=== PATIENT | male | born 1985 | race Caucasian/White ===

== ENCOUNTER 2023-04-04 09:21 | Emergency (ER) | payer MEDICAID, SELFPAY ==
[2023-04-04 09:31] VITALS: BP 165/125; PULSE 75; RESP 18; TEMP 36.8; O2SAT 99
--- NOTE | 2023-04-04 09:32 | ED_ITS ---
HPI - Back Pain/Injury 2 General: Chief Complaint: Back Pain/Injury Stated Complaint: Lower back pain Time Seen by Provider: 04/04/23 09:30 Source: patient Mode of arrival: ambulatory Limitations: no limitations History of Present Illness: Patient is a 37-year-old male presents to ED today with complaint of left-sided back pain over the past 3 days or so. Patient states at work another individual handed him an 80 pound bag of concrete abruptly and he feels like he possibly injured his back by lifting this as he began experiencing discomfort shortly after. He states pain is worse with certain movements and positions. He states rarely he will have bilateral lower extremity numbness affecting the entire surface of both legs. Patient is able to ambulate here without difficulty. He has no saddle anesthesia or bowel/bladder dysfunction. MD elicited complaint: back pain Onset (ago): day(s) Timing: constant Severity: moderate Similar Symptoms Previously: No Location: lumbar spine, thoracic spine and left lower back Radiation: none Exacerbating factors: movement Relieving factors: immobilization Context: while lifting Associated symptoms: Reports no associated symptoms; Deny abdominal pain, difficulty walking, dysuria, fever(s) or hematuria Treatments prior to arrival: cold therapy Work related injury: Yes Review of Systems 2 Const: Denies: fever(s) Card: Denies: chest pain Resp: Denies: dyspnea GI: Denies: abdominal pain : Denies: flank pain, dysuria or hematuria Musc: Reports: back pain; Denies: neck pain, extremity pain, extremity swelling, joint pain or joint swelling Skin/Breast: Denies: rash Neuro: Reports: numbness in extremities (intermittent bilateral LEs); Denies: headache(s), weakness in extremities or difficulty walking Physical Exam 2 Const: COMMON NORMALS: no acute distress, patient oriented x3, no limitations, alert and well nourished GENERAL APPEARANCE: cooperative GI: COMMON NORMALS: Normal to inspection, nondistended, normoactive bowel sounds present, Soft to palpation and non-tender PALPATION: Yes Soft to palpation : COMMON NORMALS: Yes no CVA tenderness BLADDER/KIDNEY EXAM: Yes no CVA tenderness Back/Pelvis: COMMON NORMALS: no CVA tenderness THORACIC SPINE/UPPER BACK: Y es thoracic ROM normal, No thoracic spinal tenderness and Yes paraspinal muscle tenderness LUMBAR SPINE/LOWER BACK: Yes lumbar ROM normal, No lumbar spinal tenderness, Yes paraspinal muscle tenderness, Yes paraspinal muscle spasm and Yes straight leg raise negative bilaterally PELVIS: Yes buttocks normal and No sciatic notch tenderness SACROILIAC JOINTS: Yes SI joints normal S ACRUM: no tenderness COCCYX: no tenderness BACK IMAGE (MALE): 1. TTP Extremity: COMMON NORMALS: normal to inspection, full ROM, capillary refill normal, no joint enlargement, no clubbing, cyanosis or edema, no calf tenderness and no pedal edema NARRATIVE EXTREMITY EXAM: bilateral DP/PT pulses easily palpable GENERAL: Yes normal exam except as noted Neuro: COMMON NORMALS: patient oriented x3, moves all extremities, no focal motor deficits, no sensory deficits noted and gait normal S ENSORIUM/ORIENTATION: Yes alert GAIT: Yes Normal gait present MOTOR EXAM: 5/5 motor strength present throughout DEEP TENDON REFLEXES: Right patellar reflex intensity grade: 2+ and Left patellar reflex intensity grade: 2+ Skin: COMMON NORMALS: no rashes or lesions noted GENERAL SKIN EXAM: no rashes or lesions noted Course 2 Vital Signs: Vital signs: Vital Signs Temperature 98.2 F 04/04/23 09:31 Pulse Rate 75 04/04/23 09:31 Respiratory Rate 18 04/04/23 09:31 Blood Pressure 165/125 04/04/23 09:31 Pulse Oximetry 99 04/04/23 09:31 Oxygen Delivery Me thod Room Air 04/04/23 09:31 MDM - Back Pain/Injury Medical Decision Making Patient will be treated for a musculoskeletal back strain. He has been taking ibuprofen?he can continue this. Will add steroids and muscle relaxers. He does have an upcoming PCP appointment to discuss his chronic hypertension and getting back on blood pressure medications. He can follow-up with him in regards to his back if it is not improving. He has no neurologic deficits on exam today. Differential Diagnosis Likely lumbar radiculopathy, strain of lumbar region and thoracic back pain No radiology studies performed this visit Discharge Plan Discharge Patient Disposition: Home Clinical Impression: Back strain Qualifiers: Encounter type: initial encounter Qualified Code(s): S39.012A - Strain of muscle, fascia and tendon of lower back, initial encounter Condition: Stable Prescriptions: New methocarbamol 500 mg tablet 1,000 mg PO Q8H Qty: 30 0RF prednisone 10 mg tablet 60 mg PO DAILY 5 Days Qty: 30 0RF Continued ibuprofen 200 mg Tablet 800 mg PO Q6H PRN (Reason: Pain) No Action Aspir-81 81 mg Tablet,Delayed Release (Dr/Ec) 162 mg PO DAILY Discharge Orders: Discharge ED (Routine); Ordered 04/04/23 Ordered By: Bernadette Ca Patient Instructions: Low Back Strain (ED), Thoracic Back Strain (ED) Coding Level of Care Code ED Hand Sample Maker for Adia Lechuga
--- NOTE | 2023-04-04 09:39 | PC.PHAR ---
pt states he takes care of his own medications-pt states he uses to take bp meds states he moved here and hasnt had a pcp to get a refill-pt states he was taking lisinopril 20mg daily pt states not had in 8 months pt states he has an appt with a pcp soon-
[2023-04-04] MEDS: ketorolac 60 mg/2 mL INJ IM (09:53)
[2023-04-04] MEDS: orphenadrine 30 mg/mL Inj 2 mL 60 MG IM (09:55)
== END 2023-04-04 10:16 | disposition home or self-care (01) ==
PROVIDERS: Emergency Provider Physician Assistant
DX: S39.012A Strain of muscle, fascia and tendon of lower back, initial encounter (principal); Z79.82 Long term (current) use of aspirin; X50.0XXA Overexertion from strenuous movement or load, initial encounter
CPT/HCPCS: 96372; 99284; J1885; J2360

== ENCOUNTER 2024-12-12 03:09 | Observation (INO) | payer MEDICAID, SELFPAY ==
[2024-12-12] VITALS (14 sets, daily range): BP systolic 130–193; BP diastolic 90–125; PULSE 53–81; RESP 12–24; TEMP 36.1–37.1; O2SAT 91–97; BMI 31.2
--- OUTSIDE RECORDS SUMMARY | 2024-12-12 03:14 | XMS_ITS | Clinical Summary ---
Author Organization [facility] Address [address] [place] [address] Phone Care Team Providers Care Awning Installer Name Role Phone Unavailable Primary Care Provider Unavailabl e Social History Tobacco Use Types Packs/Day Years Used Date Smoking Tobacco: Never Assessed Sex and Gender Information Value Date Recorded Sex Assigned at Not on file Legal Sex Male 4:25 PM CDT Gender Identity Not on file Sexual Orientation Not on file Plan of Treatment Health Maintenance Due Date Last Done Comments DTAP/TDAP/TD VACCINES (1 - Tdap) 2006 HEPATITIS B VACCINES (1 of 3 - 19+ 3-dose series) 03/14 HPV VACCINES (1 - 3-dose SCDM series) 2014 INFLUENZA VACCINE (#1) 2024
--- NOTE | 2024-12-12 03:49 | XRR_ITS ---
PROCEDURE INFORMATION: Exam: XR Chest Exam date and time: 12/12/2024 4:06 AM Age: 39 years old Clinical indication: Other: Epigastric pain/diaphoresis/hypertension; Hypertension with diaphoresis. C/O epigastric pain with n/v. Questionable widened mediastinum vs magnification on cxr. TECHNIQUE: Imaging protocol: Radiologic exam of the chest. Views: Portable supine AP chest x-ray, 1 view. COMPARISON: No relevant prior studies available. FINDINGS: Tubes, catheters and devices: Monitor leads project over the chest. Lungs: Low lung volume inspiration. No consolidation. Pleural spaces: No significant costophrenic angle blunting. No pneumothorax. Heart/Mediastinum: Heart size within normal limits given the portable supine AP technique. Bones/joints: No acute osseous abnormality. XR/XR chest 1V portable 10330 IMPRESSION: No acute abnormality demonstrated.
[2024-12-12] MEDS: HYDROmorphone 0.5 MG/0.5 ML INJ 1 MG IVP (03:54)
[2024-12-12] MEDS: ondansetron 2 mg/ML SDV 2 mL 4 MG IVP ×2 (03:58→17:05)
[2024-12-12 04:00] LABS: Hematocrit 45.0 % (37-53); Hemoglobin 14.90 g/dL (11.27-16.99); Mean Corpuscular HGB Conc 33.1 g/dL (30-55); Mean Corpuscular Hemoglobin 29.1 pg (27-33); Mean Corpuscular Volume 87.9 fl (82-101); Nucleated Red Blood Cells % 0 %; Platelet Count 281 10^3/cmm (157-399); Red Blood Count 5.12 10^6/uL (3.85-5.65); White Blood Count 11.64 10^3/uL (3.29-11.43)
--- NOTE | 2024-12-12 04:04 | ED_ITS ---
HPI - Abdominal Pain 2 General: Chief Complaint: Abdominal Pain Stated Complaint: Severe abd pain Time Seen by Provider: 12/12/24 03:41 History of Present Illness: 39-year-old male patient with a history of epigastric pain for the last few hours. He vomited 3 times at home. He is diaphoretic. He is nauseated. He says that he has had problems with stomach pain on and off, but never this bad. He has been diagnosed with alpha gal deficiency syndrome by his PCP. He has a history of appendectomy. He denies fever. No diarrhea. No other belly surgeries. Related Data Home Medications ?Medication ?Instructions ?Recorded ?Confirmed aspirin 81 mg tablet,delayed 81 mg PO DAILY PRN Pain 0 04/04/23 12/12/24 release lisinopril 30 mg tablet 30 mg PO DAILY 12/12/2404/06 Previous Rx's ?Medication ?Instructions ?Recorded amoxicillin 875 mg-potassium 1 tab PO BID 7 days #14 t abs 12/12/24 clavulanate 125 mg tablet meloxicam 7.5 mg tablet 7.5 mg PO DAILY #7 tabs 04/06 oxycodone 5 mg tablet 5 mg PO Q8H PRN pain 5 days #14 12/12/24 tabs Allergies Allergy/AdvReac Type Severity Reaction Status Date / Time Alpha-Gal Allergy Unknown Verified 12/12/24 07:59 (Xnthulzkm-Fdyhc-0,3-Gala shellfish derived Allergy ALGY-Difficulty Verified 12/12/24 03:28 Breathing Physical Exam 2 Const: COMMON NORMALS: no acute distress GENERAL APPEARANCE: cooperative and ill appearing HENMT: COMMON NORMALS: normocephalic, atraumatic and Normal external nose present HEAD & SCALP: normocephalic and atraumatic FACE & SINUS: normal facial exam and face symmetric NOSE: Normal external nose present Eye: COMMON NORMALS: Equal, round and reactive pupils present and EOMs intact bilaterally PUPIL: Yes Equal, round and reactive pupils present Neck/C-Spine: GENERAL: Yes trachea midline Chest: CHEST: Yes Symmetrical chest wall rise Resp: COMMON NORMALS: normal respiratory effort, No retractions, No use of accessory muscles and clear to auscultation bilaterally AUSCULTATION: clear to auscultation bilaterally Cardio: COMMON NORMALS: regular rhythm RATE: bradycardic RHYTHM: regular rhythm GI: COMMON NORMALS: Normal to inspection, nondistended, normoactive bowel sounds present PALPATION: Yes Tenderness to palpation present (GI) (Epigastric right upper quadrant) Extremity: COMMON NORMALS: no pedal edema Neuro: [place] COMA SCALE: document GCS findings [place] coma scale eye opening: Spontaneous [place] coma scale verbal response: Orientated [place] coma scale motor response: Obey commands [place] coma scale total score: 15 S ENSORY EXAM: Yes extremities (intact) Psych: COMMON NORMALS: speech normal SPEECH: Yes normal speech Skin: COMMON NORMALS: no rashes or lesions noted GENERAL SKIN EXAM: no rashes or lesions noted Course 2 Vital Signs: Vital signs: Vital Signs Temperature 97.0 F L 12/12/24 16:30 Pulse Rate 78 12/12/24 17:05 Respiratory Rate 22 H 12/12/24 17:05 Blood Pressure 171/92 12/12/24 17:05 Pulse Oximetry 92 12/12/24 17:05 Oxygen Delivery Me thod Room Air 12/12/24 17:05 MDM - Abdominal Pain Medical Decision Making Patient is bradycardic. He appears diaphoretic and nauseated. White blood cell count is 11.6. Otherwise CBC BMP are normal. Liver enzymes are normal. His troponin is nondetectable. CRP is 3. Lipase is 33. EKG shows sinus bradycardia with a heart rate of 50. Intervals are normal. [place] is normal. No ST wave changes. EKG timed 0405, read at 0408. Chest x-ray shows some widening of the mediastinum. Is free of infiltrate. CTA of the chest with follow-through CT of the belly is pending. Ultrasound of the gallbladder is also pending. Spoke with surgery. Patient has wall thickening, [place] cholecystic fluid, and stones on CT. Ultrasound is confirming. The surgeon wishes to see the patient following ultrasound and review ultrasound images. He is given Zosyn as well as a liter bolus. Lab Data 12/12/24 03:45 12/12/24 03:45 Labs/Radiology: Radiology Impressions Chest X-Ray 12/12/24 03:49 IMPRESSION: No acute abnormality demonstrated. Chest/Abdomen/Pelvis CT 12/12/24 04:15 IMPRESSION: 1. No evidence of pulmonary embolism or aortic dissection. 2. Minimal to mild lingular and bibasilar atelectasis. IMPRESSION: Cholelithiasis and acute cholecystitis. Gallbladder Ultrasound 12/12/24 04:32 IMPRESSION: Cholelithiasis and acute cholecystitis. Laboratory Results WBC 11.64 10^3/uL (3.29-11.43) H 12/12/24 03:45 RBC 5.12 10^6/uL (3.85-5.65) 12/12/24 03:45 Hgb 14.90 g/dL (11.27-16.99) 12/12/24 03:45 Hct 45.0 % (37-53) 12/12/24 03:45 MCV 87.9 fl (82-101) 12/12/24 03:45 MCH 29.1 pg (27-33) 12/12/24 03:45 MCHC 33.1 g/dL (30-55) 12/12/24 03:45 RDW 12.3 % (12.1-15.1) 12/12/24 03:45 Plt Count 281 10^3/cmm (157-399) 12/12/24 03:45 MPV 10.1 fL (7.4-10.4) 12/12/24 03:45 Neut % (Auto) 80.2 % 12/12/24 03:45 Lymph % (Auto) 13.1 % 12/12/24 03:45 [place] % (Auto) 4.4 % 12/12/24 03:45 Eos % (Auto) 1.6 % 12/12/24 03:45 Baso % (Auto) 0.4 % 12/12/24 03:45 Neut # (Auto) 9.33 10^3/uL (1.8-7.7) H 12/12/24 03:45 Lymph # (Auto) 1.5 10^3/uL (0.8-4.8) 12/12/24 03:45 [place] # (Auto) 0.5 10^3/uL (0.2-0.9) 12/12/24 03:45 Eos # (Auto) 0.2 10^3/uL (0.0-0.8) 12/12/24 03:45 Baso # (Auto) 0.1 10^3/uL (0.0-0.1) 12/12/24 03:45 Nucleated RBC % (auto) 0 % 12/12/24 03:45 Nucleated RBCs # 0.0 /100WBC 12/12/24 03:45 Sodium 136 mmol/L (136-145) 12/12/24 03:45 Potassium 4.7 mmol/L (3.5-5.1) 12/12/24 03:45 Chloride 100 mmol/L (98-107) 12/12/24 03:45 Carbon Dioxide 25 mmol/L (22-29) 12/12/24 03:45 Anion Gap 15.7 (5-19) 12/12/24 03:45 BUN 14 mg/dL (6-20) 12/12/24 03:45 Creatinine 0.8 mg/dL (0.7-1.2) 12/12/24 03:45 GFR Calculation 108.8 mL/min (90-130) 12/12/24 03:45 Glucose 108 mg/dL (65-115) 12/12/24 03:45 Calculated Osmolality 283 mOsm/kg (285-295) L 12/12/24 03:45 Calcium 11.0 mg/dL (8.5-10.5) H 12/12/24 03:45 Total Bilirubin 0.6 mg/dL (0.15-1.2) 12/12/24 03:45 AST 24 U/L (0-40) 12/12/24 03:45 ALT 28 U/L (0-41) 12/12/24 03:45 Alkaline Phosphatase 129 U/L (40-130) 12/12/24 03:45 Troponin T Baseline < 6 ng/L (0-15) 12/12/24 03:45 Troponin T 120 Minute < 6.0 ng/L (0-15) 12/12/24 05:50 Delta Troponin T 0 ABS# (0-10) 12/12/24 05:50 C-Reactive Protein 3.0 mg/L (0.0-4.9) 12/12/24 03:45 Total Protein 7.9 g/dL (6.6-8.7) 12/12/24 03:45 Albumin 5.1 g/dL (3.5-5.2) 12/12/24 03:45 Globulin 2.8 g/dL (1.3-4.6) 12/12/24 03:45 Lipase 33 U/L (13-60) 12/12/24 03:45 Urine Color Yellow (Yellow) 12/12/24 05:30 Urine Appearance Clear (CLEAR) 12/12/24 05:30 Urine pH 8.0 (5-7) A 12/12/24 05:30 Ur Specific [place] 1.039 (1.005-1.030) H 12/12/24 05:30 Urine Protein Negative (Negative) 12/12/24 05:30 Urine Glucose (UA) Negative (Normal) 12/12/24 05:30 Urine Ketones Negative (Negative) 12/12/24 05:30 Urine Blood Negative (Negative) 12/12/24 05:30 Urine Nitrate Negative (Negative) 12/12/24 05:30 Urine Bilirubin Negative (Negative) 12/12/24 05:30 Urine Urobilinogen 0.2 mg/dL (Negative) 12/12/24 05:30 Ur Leukocyte Esterase Negative (Negative) 12/12/24 05:30 Urine RBC 0-2 /hpf (0-2) 12/12/24 05:30 Urine WBC 0-5 /hpf (0-5) 12/12/24 05:30 Ur Squamous Epith Cells 0-5 /hpf (0-5) 12/12/24 05:30 Amorphous Sediment Not Reportable 12/12/24 05:30 Urine Bacteria None seen /hpf (NONE) 12/12/24 05:30 Hyaline Casts 0.40 /lpf 12/12/24 05:30 All radiology interpretation(s) finalized by discharge Discharge Plan Discharge Patient Disposition: Admitted As Inpatient Admit Provider: Adam Day Clinical Impression: Acute cholecystitis Condition: Stable Discharge Diet: Advance as tolerated Discharge Activity: Limit activity as instructed Coding Level of Care Code ED Senior Controls Engineer for Ivanag Ankush
--- NOTE | 2024-12-12 04:05 | ECG_ITS ---
[facility] Test Date: 2024-12-12 Pat Name: Shaun Schulte Department: Room: Gender: Male Senior Marketing Coordinator: : 1985 Requested By: Deuce Martines Order Number: [id number] Stevenson MD: René Cooper M.D. Measurements Intervals [place] Rate: 48 P: -37 RI: 161 QRS: -23 QRSD: 93 T: 10 QT: 398 QTc: 356 Interpretive Statements SINUS BRADYCARDIA WITH OCCASIONAL SUPRAVENTRICULAR PREMATURE COMPLEXES LOW QRS VOLTAGE IN PRECORDIAL LEADS [QRS DEFLECTION < 1.0 mV IN CHEST LEADS] POSSIBLE RIGHT VENTRICULAR CONDUCTION DELAY [RSR (QR) IN V1/V2] SEPTAL MYOCARDIAL INFARCTION , OF INDETERMINATE AGE [40+ ms Q WAVE IN V1/V2] No previous ECG available for comparison Electronically Signed On 12-12-2024 14:11:19 BOWLING BALL MOLD ASSEMBLER by René Cooper M.D. [email or web address]
--- NOTE | 2024-12-12 04:15 | CTR_ITS ---
PROCEDURE INFORMATION: Exam: CTA Chest Without And With Contrast Exam date and time: 12/12/2024 5:19 AM Age: 39 years old Clinical indication: Nausea and vomiting; Abdominal pain; Other: Hypertension/diaphoresis; Other: N/a; Prior surgery; Surgery date: 6+ months; Surgery type: Appy; Hypertension with diaphoresis. C/O epigastric pain with n/v. Questionaable widened mediastinum vs magnification on cxr. ; Additional info: Epigastric pain, widened mediastinum TECHNIQUE: Imaging protocol: Computed tomographic angiography of the chest without and with contrast. Exam focused on the arteries. 3D rendering (Not supervised by radiologist): MIP and/or 3D reconstructed images were created by the technologist. Radiation optimization: All CT scans at this facility use at least one of these dose optimization techniques: automated exposure control; mA and/or kV adjustment per patient size (includes targeted exams where dose is matched to clinical indication); or iterative reconstruction. Contrast material: OMNI 350; Contrast volume: 100 ml; Contrast route: INTRAVENOUS (IV); COMPARISON: CR (CHEST, ) 12/12/2024 4:06 AM RADIATION DOSE METRICS: Total DLP (mGy-cm): 2170.06 FINDINGS: Pulmonary arteries: No vascular intraluminal filling defects to suggest pulmonary embolism. Aorta: No acute abnormality. No aortic aneurysm or dissection. Lungs: Minimal to mild lingular and bibasilar atelectasis. No consolidation. Pleural spaces: No pleural effusion. No pneumothorax. Heart: Heart size is normal. Coronary arteries: No coronary artery calcifications demonstrated. Lymph nodes: No enlarged lymph nodes. Bones/joints: No acute osseous abnormality. No acute fracture. Soft tissues: No significant soft tissue abnormalities. PROCEDURE INFORMATION: Exam: CT Abdomen And Pelvis With Contrast Exam date and time: 12/12/2024 5:19 AM Age: 39 years old Clinical indication: Nausea and vomiting; Abdominal pain; Other: Hypertension/diaphoresis; Other: N/a; Prior surgery; Surgery date: 6+ months; Surgery type: Appy; Hypertension with diaphoresis. C/O epigastric pain with n/v. Questionaable widened mediastinum vs magnification on cxr. ; Additional info: Epigastric pain, widened mediastinum TECHNIQUE: Imaging protocol: Computed tomography of the abdomen and pelvis with contrast. Radiation optimization: All CT scans at this facility use at least one of these dose optimization techniques: automated exposure control; mA and/or kV adjustment per patient size (includes targeted exams where dose is matched to clinical indication); or iterative reconstruction. Contrast material: OMNI 350; Contrast volume: 100 ml; Contrast route: INTRAVENOUS (IV); COMPARISON: CR (CHEST, ) 12/12/2024 4:06 AM RADIATION DOSE METRICS: Total DLP (mGy-cm): 2170.06 FINDINGS: Liver: No acute abnormality. No mass. Gallbladder and biliary ducts: Faint gallstone or stones within the posterior gallbladder fundus and neck with gallbladder wall thickening, enhancement, pericholecystic fluid and fat stranding. No significant biliary ductal dilatation. Pancreas: No acute abnormality. No ductal dilation. Spleen: No acute abnormality. Adrenal glands: No significant or acute abnormality. Kidneys and ureters: No acute abnormality. No hydronephrosis. Stomach and bowel: Fluid and ingested contents within the stomach. No significant or disproportionate large or small bowel distention. No evidence of diverticulitis. Appendix: Appendix is absent with tiny pericecal metallic clips. Intraperitoneal space: No significant fluid collection. No free air. Vasculature: No acute abnormality. No aortic aneurysm or dissection. Lymph nodes: No enlarged lymph nodes. Urinary bladder: Unremarkable as visualized. Reproductive: Unremarkable as visualized. Bones/joints: No acute osseous abnormality. No dislocation. Soft tissues: No significant soft tissue abnormalities. CT/CT angio chest w abd pel w con IMPRESSION: 1. No evidence of pulmonary embolism or aortic dissection. 2. Minimal to mild lingular and bibasilar atelectasis. IMPRESSION: Cholelithiasis and acute cholecystitis.
[2024-12-12 04:26] LABS: Troponin(5th) Baseline < 6 ng/L (0-15)
[2024-12-12 04:29] LABS: Alanine Aminotransferase 28 U/L (0-41); Albumin Level 5.1 g/dL (3.5-5.2); Alkaline Phosphatase 129 U/L (40-130); Blood Urea Nitrogen 14 mg/dL (6-20); Calcium 11.0 mg/dL (8.5-10.5); Carbon Dioxide 25 mmol/L (22-29); Chloride 100 mmol/L (98-107); Creatinine Clr Calc Pharmacy 153.4664; Globulin 2.8 g/dL (1.3-4.6); Glucose 108 mg/dL (65-115); Lipase 33 U/L (13-60); Osmolality Calculated 283 mOsm/kg (285-295); Sodium 136 mmol/L (136-145); Total Protein 7.9 g/dL (6.6-8.7)
--- NOTE | 2024-12-12 04:32 | USR_ITS ---
PROCEDURE INFORMATION: Exam: US Abdomen, Limited; Right Upper Quadrant Exam date and time: 12/12/2024 5:57 AM Age: 39 years old Clinical indication: Abdominal pain; Epigastric; HX of appendectomy; Additional info: Ruq and epigastric pain TECHNIQUE: Imaging protocol: Real time ultrasound of the abdomen with image documentation. Limited exam focused on the right upper quadrant. COMPARISON: CT angio chest w abd pel w con 12/12/2024 5:19 AM FINDINGS: Liver: No acute abnormality. No intrahepatic ductal dilatation. No masses. Gallbladder: Shadowing gallstone or stones within the gallbladder neck with moderate gallbladder distension. Gallbladder wall thickening measuring approximately 8 mm in thickness anteriorly. Mild pericholecystic fluid. Biliary ducts: No significant biliary ductal dilatation. Common bile duct measures 3 mm in diameter. Pancreas: Pancreas not well visualized. Right kidney: No acute abnormality. No mass. No hydronephrosis. Intraperitoneal space: Minimal subhepatic fluid. US/US gall bladder [id number] IMPRESSION: Cholelithiasis and acute cholecystitis.
[2024-12-12 04:35] LABS: Anion Gap 15.7 (5-19); Aspartate Amino Transferase 24 U/L (0-40); Potassium 4.7 mmol/L (3.5-5.1)
[2024-12-12] MEDS: iohexol 350 mg/mL 500 mL Btl (per mL) IV (04:35)
[2024-12-12 05:47] LABS: Glucose Urine UA Negative (Normal); Nitrate Urine Negative (Negative)
[2024-12-12 05:51] LABS: Add Urine Microscopic? YES; Specific Gravity, Urine 1.039 (1.005-1.030)
[2024-12-12 06:15] LABS: Troponin 5 2HR < 6.0 ng/L (0-15); Troponin 5 2HR Delta 0 ABS# (0-10)
--- NOTE | 2024-12-12 06:22 | ECG_ITS ---
[facility] Date: 2024-12[facility]12 Pat Name: Shaun Schutle Department: Room: Gender: Male Vocational Training Director: : 1985 Requested By: Deuce Martines Order Number: [id number] Graham MD: René Cooper M.D. Measurements Intervals [place] Rate: 58 P: -16 AL: 151 QRS: 2 QRSD: 97 T: 0 QT: 410 QTc: 405 Interpretive Statements SINUS BRADYCARDIA SEPTAL INFARCT, AGE UNDETERMINED Compared to ECG 12/12/2024 04:05:12 Septal myocardial infarct finding still present Electronically Signed On 12-12-2024 14:16:50 ADULT MINISTRIES DIRECTOR by René Cooper M.D. [email or web address]
[2024-12-12] MEDS: piperacillin-tazobactam 3.375 GM in sodium chloride 0.9% (plus) 50 ML IV ×2 (06:28→13:44)
[2024-12-12] MEDS: metoclopramide 5 mg/mL SDV 2 mL 10 MG IVP (06:28)
--- NOTE | 2024-12-12 07:54 | PM.HP ---
Providers/Chief Complaint Chief Complaint: Severe abd pain History of Present Illness Shaun Schulte is a 39 year old male Who presents to the hospital with severe epigastric abdominal pain and periumbilical abdominal pain. According to the patient the pain woke him up from his sleep around 1 AM. He also had several episodes of nausea and vomiting. Denies diarrhea. No fever or chills. In the ER white count was 11 laboratory markers otherwise was unremarkable, he had a CT scan and ultrasound of the abdomen that showed evidence of acute cholecystitis. Review of Systems General: Reports: 10 or more systems reviewed and unremarkable except in HPI and below Medications/Allergies Home Medications ?Medication ?Instructions ?Recorded ?Confirmed ?Last Taken ?Type aspirin 81 mg tablet,delayed 162 mg PO DAILY 04/04/23 04/04/23 04/03/23 History release ibuprofen 200 mg tablet 800 mg PO Q6H PRN Pain 04/04/23 04/04/23 Unknown History methocarbamol 500 mg tablet 1,000 mg (2 x 500 mg) PO Q8H #30 04/04/23 Unknown Rx tabs Allergies Allergy/AdvReac Type Severity Reaction Status Date / Time shellfish derived Allergy ALGY-Difficulty Verified 12/12/24 03:28 Breathing Vitals/I&O/Wt Last Vital Signs Temp 98.7 F 12/12/24 03:26 Pulse 53 L 12/12/24 05:51 Resp 14 12/12/24 03:26 BP 152/99 12/12/24 05:51 Pulse Ox 92 12/12/24 05:51 O2 Del Method Room Air 12/12/24 05:51 12/11/24 12/12/24 12/12/24 22:59 05:59 14:59 Intake Total 0 / 0 Balance 0 / 0 Weight last 48 hrs Weight 224 lb Physical Exam Narrative: Abdominal exam is benign the abdomen is soft there is some tenderness to palpation mainly periumbilical but also on the right upper quadrant, Ta sign is negative. Data 12/12/24 03:45 12/12/24 03:45 A&P Assessment and plan 1. Acute cholecystitis: Plan: After a complete history, physical examination and review of all available clinical data I have offered the patient laparoscopic cholecystectomy for Acute cholecystitis. All the risk and benefits of the procedure were discussed with the patient including the risks of bleeding, infection, damage to surrounding structures including liver, duodenum, colon, risk of injuring bile ducts requiring extensive surgery at higher level of care facility, risk of retained stones, bile leak, bili Priyanka, need for subtotal cholecystectomy, hernia and wound related complications, need to conversion to open procedure. Patient shows understanding and would like to proceed. The goal will be for the patient to be able to transition to the outpatient setting as soon as we finish the operation. But I did explain that in the case of significant findings or intra-abdominal abscess he may require to stay in the hospital for IV antibiotics. PDMP PDMP Reviewed: Not Reviewed Attestations Medical Necessity Statement*: Possible discharge after surgery today Coding Level of Care Code Acute Code for [facility] Diagnoses Acute cholecystitis K81.0
[2024-12-12] MEDS: HYDROmorphone 0.5 MG/0.5 ML INJ IVP (08:06)
[2024-12-12 10:47] LABS: Troponin 5 6HR < 6.0 ng/L (0-15); Troponin 5 6HR Delta 0 ng/L (0-12)
--- NOTE | 2024-12-12 13:00 | ANES.PREANE2 ---
Pre-Anesthetic Assessment Height/Weight: Height 5 ft 11 in Weight 224 lb Temp Pulse Resp BP Pulse Ox O2 Del Method 97.2 F L 63 18 134/90 97 Room Air 12/12/24 09:29 12/12/24 09:29 12/12/24 09:29 12/12/24 09:29 12/12/24 09:29 12/12/24 09:29 Preop Diagnosis: Acute cholecystitis Operation Date: 12/12/24 13:20 Proposed Procedures p Laparoscopic Possible Open Cholecystectomy(Not Applicable) - Adam Day MD Was Beta Brad taken within 24 hours: N/A Was Clonidine taken within 24 hours: N/A Social No alcohol and No tobacco Exam alert, oriented x 3, clear to auscultation bilaterally and regular rate & rhythm Airway Submandibular: within normal limits Cervical ROM: within normal limits Mallampati: Class II Dentition: full Anesthetic Plan ASA status: 3 Anesthesia: General Other: Patient with acute cholecystitis, WBC 11. Currently afebrile and not having any pain No prior issues with anesthesia Patient states that he drank a little water around 1 AM today but otherwise no food or drink since 8 PM last night. Last episode of emesis was late last night History of hypertension on lisinopril Labs reviewed and acceptable for procedure Plan for GETA Medications/Allergies Home Medications ?Medication ?Instructions ?Recorded ?Confirmed ?Last Taken ?Type aspirin 81 mg tablet,delayed 81 mg PO DAILY PRN Pain 04/04/23 12/12/24 04/03/23 History release amoxicillin 875 mg-potassium 1 tab PO BID 7 days #14 tabs 12/12/24 Unknown Rx clavulanate 125 mg tablet lisinopril 30 mg tablet 30 mg PO DAILY 12/12/24 12/12/24 Unknown History meloxicam 7.5 mg tablet 7.5 mg PO DAILY #7 tabs 12/12/24 Unknown Rx oxycodone 5 mg tablet 5 mg PO Q8H PRN pain 5 days #14 12/12/24 Unknown Rx tabs Allergies Allergy/AdvReac Type Severity Reaction Status Date / Time Alpha-Gal Allergy Unknown Verified 12/12/24 07:59 (Artibvayv-Ylizc-1,3-Gala shellfish derived Allergy ALGY-Difficulty Verified 12/12/24 03:28 Breathing Current Medications Generic Name Dose Route Start Last Admin Trade Name Freq PRN Reason Stop Dose Admin Hydromorphone HCl 0.5 mg 12/12/24 07:39 12/12/24 08:06 Hydromorphone 0.5 Mg/0.5 Ml Inj IVP 0.5 mg Q4H PRN Administration PAIN Lactated Ringer's 1,000 mls @ 100 mls/hr 12/12/24 06:45 12/12/24 07:45 Lactated Ringers IV 100 mls/hr .Q10H KADE Administration Data Anesthesia 12/12/24 03:45 12/12/24 03:45 Short CBC 12/12/24 Range/Units 03:45 WBC 11.64 H (3.29-11.43) 10^3/uL Hgb 14.90 (11.27-16.99) g/dL Hct 45.0 (37-53) % MCV 87.9 (82-101) fl Plt Count 281 (157-399) 10^3/cmm Neut % (Auto) 80.2 % Neut # (Auto) 9.33 H (1.8-7.7) 10^3/uL BMP 12/12/24 03:45 Sodium 136 Potassium 4.7 Chloride 100 Carbon Dioxide 25 BUN 14 Creatinine 0.8 Glucose 108 Calcium 11.0 H Cardiac Enzymes 12/12/24 12/12/24 12/12/24 Range/Units 03:45 05:50 10:21 Troponin T Baseline < 6 (0-15) ng/L Troponin T 120 Minute < 6.0 (0-15) ng/L Delta Troponin T 0 (0-10) ABS# Troponin T Hi Sens 6Hr < 6.0 (0-15) ng/L Troponin T Hi Sens 6Hr Delta 0 (0-12) ng/L Liver Function 12/12/24 Range/Units 03:45 Total Bilirubin 0.6 (0.15-1.2) mg/dL AST 24 (0-40) U/L ALT 28 (0-41) U/L Alkaline Phosphatase 129 (40-130) U/L Albumin 5.1 (3.5-5.2) g/dL Urine 12/12/24 Range/Units 05:30 Urine Color Yellow (Yellow) Urine Appearance Clear (CLEAR) Urine pH 8.0 A (5-7) Ur Specific [place] 1.039 H (1.005-1.030) Urine Protein Negative (Negative) Urine Glucose (UA) Negative (Normal) Urine Ketones Negative (Negative) Urine Nitrate Negative (Negative) Urine Bilirubin Negative (Negative) Ur Leukocyte Esterase Negative (Negative) Urine RBC 0-2 (0-2) /hpf Urine WBC 0-5 (0-5) /hpf Coags 12/12/24 03:45 C-Reactive Protein 3.0
[2024-12-12] MEDS: lidocaine-epi 1% 20 mL INJ INJECTION (14:11)
[2024-12-12] MEDS: BUPivacaine 0.25% INJ 30 mL INJECTION (14:11)
--- NOTE | 2024-12-12 16:15 | PM.OP ---
Operative Report Date of procedure: December 12, 2024 Pre-op diagnosis: Acute cholecystitis Post-op diagnosis: Acute cholecystitis, intra-abdominal adhesions Post-op findings: The omentum was deeply adherent to the anterior abdominal wall from the level of the falciform ligament all the way down to the infraumbilical region. Gallbladder was significantly inflamed, there were thick adhesions from the pericolonic fat to the liver and the gallbladder. Procedure done: Laparoscopic ostectomy, extensive lysis of additions Specimens removed/disposition: Gallbladder Surgeon: Adam Day MD [employer] Scheduler: DARSHANA OR STaff Estimated blood loss: 10 Complications: None apparent Brief History: This is a 39-year-old male who presented to the hospital with abdominal pain and CT scan showed evidence of acute cholecystitis. After discussion of all risk benefits documented my preop note we decided to proceed to the OR for laparoscopic possible open cholecystectomy. Procedure: Patient was brought into the OR, he was placed in a supine position. General anesthesia was given. The abdomen was prepped and draped in the usual sterile fashion. A timeout was conducted. I accessed the abdomen via a 5 mm Optiview port in the left upper quadrant. Initial pneumoperitoneum was obtained and no evidence of visceral injury during entry was noted. Upon initial entry to the abdomen it was apparent that there were severe adhesions from the omentum to the anterior abdominal wall from the level of the falciform ligament all the way down to the infraumbilical location. I was able to navigate the camera between the falciform and the adhesed omentum to the right side of the abdomen and under direct visualization I pulled a trocar in the epigastrium right upper quadrant and right flank locations, I then switched my camera to start adhesiolysis that is omentum to anterior abdominal wall and realized that additional access will be needed to adequately release the omentum and therefore I placed another 5 mm trocar in the right lower quadrant. With careful dissection with blunt instruments as well as ligature I was able to liberate the whole omentum from the anterior abdominal wall, I then visualized the gallbladder and there were thick adhesions from the omentum to the gallbladder as well as from the pericolonic tissue to the edges of the liver difficulty and exposure of the gallbladder, I take significant F4 with the use of blunt dissection and electrocautery to remove this adhesions to the gallbladder until the infundibulum was visualized and then the adhesions from the pericolonic tissue to the liver were slowly taken down carefully to allow for better retraction and exposure of the critical structures. In total I spent around 60 minutes performing adhesiolysis. Once adhesiolysis was completed I placed a 12 mm trocar in an infraumbilical location using the previous surgical scar this was done under direct visualization. The gallbladder was grasped from the fundus and retracted cephalad, I then grasped the infundibulum and retracted in the inferolateral direction exposing the hepatocystic triangle. The peritoneum anterior to the hepatocystic triangle was opened with electrocautery, I carried this opening in the medial and lateral direction to the edges of the liver and then on the sides of the gallbladder to allow for better exposure. Dissection was challenging due to significant scarring likely from chronic inflammation, with careful blunt dissection as well as electrocautery I was able to encircle the cystic duct and artery, I also elevated lower third of the gallbladder from the liver bed, thus creating a critical view of safety. The cystic duct and artery were double clipped proximally and single clipped distally and transected. The gallbladder was removed from the liver bed using electrocautery. The gallbladder was retrieved in an Endo Catch bag via the umbilical trocar site, due to the size of the stones inside of the gallbladder I had to increase the size of the trocar site by dilation and also sharp means. The liver bed and clips were inspected the area was hemostatic, there was no evidence of bile leak the clips appeared to be in good position. The umbilical trocar was removed and umbilical trocar site was closed with two 0 Vicryl Jeremy-Remington suture passer under direct visualization. The epigastrium right upper quadrant right flank right lower quadrant trocars were removed under direct visualization, the left upper quadrant trocar was used to evacuate the pneumoperitoneum and subsequently removed. Local anesthesia was infiltrated. Hemostasis was achieved from the trocar sites. The wounds were closed in layers using #3-0 Vicryl for the subcutaneous tissue #4 Monocryl for the skin. At the end of the procedure all counts were correct, the patient tolerated well the procedure was transferred to the PACU in stable condition.
--- NOTE | 2024-12-12 16:24 | PM.DCS ---
Discharge Providers Date of Admission: 12/12/24 09:34 Date of Discharge: December 12, 2024 Attending Provider at Admission: Adam Day MD Attending Provider at Discharge: Adam Day MD Diagnoses at Discharge Discharge Diagnosis 1. Acute cholecystitis: Reason for Visit Reason for Visit: Severe abd pain Hospital Course Hospital Course 39-year-old male admitted with acute cholecystitis. After discussion of all risk and benefits patient proceed to the OR for a laparoscopic possible open cholecystectomy. Procedure was done without complications, patient did well in the postoperative period and was allowed to transition home. Physical Exam GI: OTHER: Abdominal exam is benign, surgical incisions covered with dressing. Discharge Data Studies Completed and Pending Completed Studies During Hospitalization Category Date Time Status CTA chest CT abdomen pelvis [CT Angio Chest + Abdomen Cat Scan 12/12/24 04:15 Completed Pelvis w/ contrast; [id number] + [id number]] Stat XR chest 1V portable [id number] Stat Exams 12/12/24 03:49 Completed US gall bladder [id number] Stat Ultrasound 12/12/24 04:32 Completed Pending at discharge Category Date Time Status Pathology: Surgical [PTH] Routine Pth 12/12/24 16:04 Ordered Radiology Impressions Chest X-Ray 12/12/24 03:49 IMPRESSION: No acute abnormality demonstrated. Chest/Abdomen/Pelvis CT 12/12/24 04:15 IMPRESSION: 1. No evidence of pulmonary embolism or aortic dissection. 2. Minimal to mild lingular and bibasilar atelectasis. IMPRESSION: Cholelithiasis and acute cholecystitis. Gallbladder Ultrasound 12/12/24 04:32 IMPRESSION: Cholelithiasis and acute cholecystitis. Laboratory Results WBC 11.64 10^3/uL (3.29-11.43) H 12/12/24 03:45 RBC 5.12 10^6/uL (3.85-5.65) 12/12/24 03:45 Hgb 14.90 g/dL (11.27-16.99) 12/12/24 03:45 Hct 45.0 % (37-53) 12/12/24 03:45 MCV 87.9 fl (82-101) 12/12/24 03:45 MCH 29.1 pg (27-33) 12/12/24 03:45 MCHC 33.1 g/dL (30-55) 12/12/24 03:45 RDW 12.3 % (12.1-15.1) 12/12/24 03:45 Plt Count 281 10^3/cmm (157-399) 12/12/24 03:45 MPV 10.1 fL (7.4-10.4) 12/12/24 03:45 Neut % (Auto) 80.2 % 12/12/24 03:45 Lymph % (Auto) 13.1 % 12/12/24 03:45 Dickey % (Auto) 4.4 % 12/12/24 03:45 Eos % (Auto) 1.6 % 12/12/24 03:45 Baso % (Auto) 0.4 % 12/12/24 03:45 Neut # (Auto) 9.33 10^3/uL (1.8-7.7) H 12/12/24 03:45 Lymph # (Auto) 1.5 10^3/uL (0.8-4.8) 12/12/24 03:45 Dickey # (Auto) 0.5 10^3/uL (0.2-0.9) 12/12/24 03:45 Eos # (Auto) 0.2 10^3/uL (0.0-0.8) 12/12/24 03:45 Baso # (Auto) 0.1 10^3/uL (0.0-0.1) 12/12/24 03:45 Nucleated RBC % (auto) 0 % 12/12/24 03:45 Nucleated RBCs # 0.0 /100WBC 12/12/24 03:45 Sodium 136 mmol/L (136-145) 12/12/24 03:45 Potassium 4.7 mmol/L (3.5-5.1) 12/12/24 03:45 Chloride 100 mmol/L (98-107) 12/12/24 03:45 Carbon Dioxide 25 mmol/L (22-29) 12/12/24 03:45 Anion Gap 15.7 (5-19) 12/12/24 03:45 BUN 14 mg/dL (6-20) 12/12/24 03:45 Creatinine 0.8 mg/dL (0.7-1.2) 12/12/24 03:45 GFR Calculation 108.8 mL/min (90-130) 12/12/24 03:45 Glucose 108 mg/dL (65-115) 12/12/24 03:45 Calculated Osmolality 283 mOsm/kg (285-295) L 12/12/24 03:45 Calcium 11.0 mg/dL (8.5-10.5) H 12/12/24 03:45 Total Bilirubin 0.6 mg/dL (0.15-1.2) 12/12/24 03:45 AST 24 U/L (0-40) 12/12/24 03:45 ALT 28 U/L (0-41) 12/12/24 03:45 Alkaline Phosphatase 129 U/L (40-130) 12/12/24 03:45 Troponin T Baseline < 6 ng/L (0-15) 12/12/24 03:45 Troponin T 120 Minute < 6.0 ng/L (0-15) 12/12/24 05:50 Delta Troponin T 0 ABS# (0-10) 12/12/24 05:50 Troponin T Hi Sens 6Hr < 6.0 ng/L (0-15) 12/12/24 10:21 Troponin T Hi Sens 6Hr Delta 0 ng/L (0-12) 12/12/24 10:21 C-Reactive Protein 3.0 mg/L (0.0-4.9) 12/12/24 03:45 Total Protein 7.9 g/dL (6.6-8.7) 12/12/24 03:45 Albumin 5.1 g/dL (3.5-5.2) 12/12/24 03:45 Globulin 2.8 g/dL (1.3-4.6) 12/12/24 03:45 Lipase 33 U/L (13-60) 12/12/24 03:45 Urine Color Yellow (Yellow) 12/12/24 05:30 Urine Appearance Clear (CLEAR) 12/12/24 05:30 Urine pH 8.0 (5-7) A 12/12/24 05:30 Ur Specific [place]iss[place] 1.039 (1.005-1.030) H 12/12/24 05:30 Urine Protein Negative (Negative) 12/12/24 05:30 Urine Glucose (UA) Negative (Normal) 12/12/24 05:30 Urine Ketones Negative (Negative) 12/12/24 05:30 Urine Blood Negative (Negative) 12/12/24 05:30 Urine Nitrate Negative (Negative) 12/12/24 05:30 Urine Bilirubin Negative (Negative) 12/12/24 05:30 Urine Urobilinogen 0.2 mg/dL (Negative) 12/12/24 05:30 Ur Leukocyte Esterase Negative (Negative) 12/12/24 05:30 Urine RBC 0-2 /hpf (0-2) 12/12/24 05:30 Urine WBC 0-5 /hpf (0-5) 12/12/24 05:30 Ur Squamous Epith Cells 0-5 /hpf (0-5) 12/12/24 05:30 Amorphous Sediment Not Reportable 12/12/24 05:30 Urine Bacteria None seen /hpf (NONE) 12/12/24 05:30 Hyaline Casts 0.40 /lpf 12/12/24 05:30 Vitals Last Vital Signs Temp 97.2 F L 12/12/24 09:29 Pulse 63 12/12/24 09:29 Resp 18 12/12/24 09:29 BP 134/90 12/12/24 09:29 Pulse Ox 97 12/12/24 09:29 O2 Del Method Room Air 12/12/24 09:29 Discharge Plan Discharge Patient Disposition: Home Condition: Stable Prescriptions: New amoxicillin-pot clavulanate 875-125 mg tablet 1 tab PO BID 7 Days Qty: 14 0RF oxycodone 5 mg tablet 5 mg PO Q8H PRN (Reason: pain) 5 Days Qty: 14 0RF meloxicam 7.5 mg tablet 7.5 mg PO DAILY Qty: 7 0RF Continued aspirin 81 mg Tablet,Delayed Release (Dr/Ec) 81 mg PO DAILY PRN (Reason: Pain) lisinopril 30 mg tablet 30 mg PO DAILY Discontinued ibuprofen 200 mg Tablet 800 mg PO Q6H PRN (Reason: Pain) Discharge Order = DC NOW: Discharge Order (Routine); Ordered 12/12/24 Ordered By: Adam Day Referrals: Adam Day MD [Physician, General Surgery] Referral Note: 2 weeks Discharge Diet: Advance as tolerated Discharge Activity: Limit activity as instructed Patient Instructions: Abdominal Pain (ED), Opioid Safety, Patient Portal & Batsheva Instructions Activity Restrictions/Additional Instructions: General Instructions: Please do not lift anything heavier than 10 pounds, for the next 4 to 6 weeks. You can walk is much as possible, this will help you recover faster. You can shower starting the day after tomorrow, let soap and water run over your wound and then pat dry. Please take your medication as indicated if you are taking opioids please do not forget to take a stool softener Warning signs: Return to the hospital if you have fever, chills, severe abdominal pain that is getting worse over time despite your pain medication or if your eyes or skin are turning yellow Discharge Attestations Time Spent in Discharge Care*: less than 30 min Quality Metrics Clinical Quality Measures [ No reported AMI, CVA or VTE this stay] Coding Level of Care Code Acute Code for [facility] Diagnoses Acute cholecystitis K81.0
--- NOTE | 2024-12-12 16:39 | PC.NURSE ---
Addendum entered by Prachi Hollingsworth RN 12/12/24 16:41: anesthesia educated pt to follow up with PCP regarding BP Original Note: 1630 pt to pacu - anesthesia at side to address blood pressure - see anesthesia record
[2024-12-12] MEDS: ondansetron 2 mg/ML SDV 2 mL 4 MG (16:45)
--- NOTE | 2024-12-12 16:58 | PC.NURSE ---
9308 - Dr Tracy aware of pts BP and medications given - ok to transition pt to phase 2
--- NOTE | 2024-12-12 17:14 | PC.NURSE ---
5911 - discharge instructions given to pt and spouse - both verbalize understanding - pt on room air - 94% pulse 70 - RR 20 - BP 149/100
== END 2024-12-12 17:13 | disposition home or self-care (01) ==
LOC: ER 06:39 → OR 08:51 → OBGYN 09:36
PROVIDERS: Admitting Provider Surgery; Emergency Provider Emergency Medicine; Visit Provider Surgery
PROC: 0FT44ZZ Resection of Gallbladder, Percutaneous Endoscopic Approach (ICD-10-PCS; CPT 47562; principal; 2024-12-12 13:10)
PROC: (CPT 47562; 2024-12-12 13:10)
DX: K80.10 Calculus of gallbladder with chronic cholecystitis without obstruction (principal); Z79.82 Long term (current) use of aspirin; I10 Essential (primary) hypertension; Z91.014 Allergy to mammalian meats
CPT/HCPCS: 47562; 71045; 71275; 74177; 76705; 80053; 81001; 83690; 84484; 85025; 86140; 88304; 93005; 96365; 96375; 96376; 99285; 99291; A4216; G0378; J0131; J1100; J1171; J1885; J2405; J2543; J2704; J2765; J3010; J3490; J7030; J7120; J9999